=== PATIENT | male | born 1960 | race Caucasian/White ===

== ENCOUNTER 2022-12-19 05:53 | Day surgery (SDC) | payer OTHER ==
[2022-12-19] MEDS ORDERED: Lactated Ringers 1,000 ML IV SCH (06:30)
[2022-12-19] MEDS ORDERED: DIPRIVAN 200 MG/20 ML IV ONE (07:14)
[2022-12-19] MEDS ORDERED: Xylocaine-Mpf 2% 5 Ml Vial ONE (07:14)
[2022-12-19] MEDS ORDERED: Versed 2 MG/2 ML Injection ONE (07:14)
[2022-12-19 08:26] VITALS: BP 148/86; PULSE 79; O2SAT 96
--- NOTE | 2022-12-19 11:51 | OP ---
SURGERY DATE/TIME: 12/19/2022 0735 PREOPERATIVE DIAGNOSES: 1) Abdominal pain. 2) Screening colonoscopy. POSTOPERATIVE DIAGNOSIS: Normal colon. PROCEDURE: Colonoscopy. SURGEON: Anshu Sepulveda M.D. ANESTHESIA: MAC by Prateek Melissa CRNA. ESTIMATED BLOOD LOSS: None. SPECIMENS: None. DESCRIPTION OF PROCEDURE: After informed written consent was obtained, the patient was taken to the endoscopy suite. He was placed in left lateral decubitus position and anesthesia was titrated to desired level of consciousness. Digital rectal exam showed normal sphincter tone and no internal lesions. The scope was inserted into the rectum and sequentially the entire colonic mucosa was traversed. The level of cecum was reached and verified with direct visualization of the ileocecal valve. Upon withdrawal careful mucosal inspection revealed no gross abnormalities. Prep was noted to be fair. Prior to withdrawal retroflexion was performed and showed no internal lesions. The scope was removed. The patient was transferred to the recovery room in good condition.
== END 2022-12-19 08:38 | disposition home or self-care (01) ==
LOC: SDC 05:53
PROVIDERS: ATTEND Family Medicine
DX: Z12.11 Encounter for screening for malignant neoplasm of colon (principal); R10.9 Unspecified abdominal pain
CPT/HCPCS: J2250; J2704